=== PATIENT | male | born 1965 | race African-American/Black ===

== ENCOUNTER 2023-02-06 21:53 | Emergency (ER) | payer MEDICAID ==
[~2023-02-06] VITALS: Ht 172.7 cm; Wt 69.0 kg
[2023-02-06 23:13] LABS: CHLORIDE 108 mEq/L (98-107)
[2023-02-06 23:24] LABS: ETHANOL BLOOD < 10 mg/dL
[2023-02-06 23:27] LABS: BASOPHILS % 0.5 % (0.0-2.0); HEMATOCRIT. 41.3 % (42.0-52.0); HEMOGLOBIN. 13.7 g/dL (14.0-18.0); LYMPHOCYTES % 12.6 % (20.0-50.0); MEAN CORPUSCULAR HEMOGLOBIN 28.7 pg (28.0-32.0); MEAN CORPUSCULAR VOLUME 86.8 fL (80.0-94.0); MONOCYTES % 4.1 % (2.0-8.0); NEUTROPHILS % 79.8 % (40.0-76.0); PLATELET 244 x1000/uL (130-400); RED BLOOD CELL COUNT 4.76 mill/uL (4.7-6.1); RED CELL DISTRIBUTION WIDTH 14.3 % (11.6-14.6)
[2023-02-07] MEDS ORDERED: ALBUTEROL (0.083%) 2.5MG/3ML NEB HHN STA (02:29)
[2023-02-07] MEDS ORDERED: IPRATROPIUM BROMIDE (0.02%) 0.5MG/2.5ML NEB HHN STA (02:29)
[2023-02-07] MEDS ORDERED: METHYLPREDNISOLONE SOD SUCC 125 MG/2 ML VIAL IV STA (02:29)
[2023-02-07 02:51] LABS: *AMPHETAMINES SCREEN URINE NEGATIVE (NEGATIVE); *BARBITURATES SCREEN URINE NEGATIVE (NEGATIVE); *BENZODIAZEPINES SCREEN URINE NEGATIVE (NEGATIVE); *COCAINE SCREEN URINE PRESUMTIVE POSITIVE (NEGATIVE); CANNABINOID URINE SCREEN PRESUMTIVE POSITIVE (NEGATIVE); METHADONE URINE SCREEN NEGATIVE (NEGATIVE); OPIATES URINE SCREEN NEGATIVE (NEGATIVE); PHENCYCLIDINE URINE SCREEN NEGATIVE (NEGATIVE)
[2023-02-07] MEDS ORDERED: PRED10TA MT (04:41)
[2023-02-07] MEDS ORDERED: ALBU6.7H3 INH (04:41)
[2023-02-07 05:05] VITALS: BP 122/76
== END 2023-02-07 05:07 | disposition home or self-care (01) ==
LOC: ER 21:53
DX: J45.909 Unspecified asthma, uncomplicated (principal); I10 Essential (primary) hypertension
CPT/HCPCS: 36415; 71045; 80053; 80305; 80320; 83690; 83880; 84484; 85025; 93005; 94640; 96374; 99285; J2930; Z7610; G0480

== ENCOUNTER 2023-03-19 17:55 | Emergency (ER) | payer MEDICAID ==
[~2023-03-19] VITALS: Ht 175.3 cm; Wt 58.9 kg
[~2023-03-19 17:55] MED LIST: ALBU6.7H3 INH; PRED10TA MT
[2023-03-19] MEDS ORDERED: IPRATROPIUM/ALBUTEROL 0.5-3(2.5)MG/3ML NEB HHN ONE (18:15)
[2023-03-19] MEDS ORDERED: PREDNISONE 20MG TABLET PO ONE (18:15)
[2023-03-19] MEDS ORDERED: ALBUTEROL (0.083%) 2.5MG/3ML NEB HHN STA (19:39)
[2023-03-19] MEDS ORDERED: IPRATROPIUM BROMIDE (0.02%) 0.5MG/2.5ML NEB HHN STA (19:39)
[2023-03-19] MEDS ORDERED: P50 MT (21:25)
[2023-03-19 21:38] VITALS: BP 136/92
== END 2023-03-19 21:57 | disposition home or self-care (01) ==
LOC: ER 17:55
DX: J45.901 Unspecified asthma with (acute) exacerbation (principal); I10 Essential (primary) hypertension
CPT/HCPCS: 94640; 99285; J7512; Z7610; 99283

== ENCOUNTER 2023-04-07 12:17 | Emergency (ER) | payer MEDICAID ==
[~2023-04-07] VITALS: Ht 175.3 cm; Wt 76.0 kg
[~2023-04-07 12:17] MED LIST changes: +P50 MT
[2023-04-07 13:06] LABS: BASOPHILS % 0.8 % (0.0-2.0); EOSINOPHILS % 7.1 % (0.0-5.0); HEMATOCRIT. 43.5 % (42.0-52.0); HEMOGLOBIN. 14.4 g/dL (14.0-18.0); LYMPHOCYTES % 18.7 % (20.0-50.0); MEAN CORPUSCULAR HEMOGLOBIN 28.9 pg (28.0-32.0); MEAN CORPUSCULAR VOLUME 87.5 fL (80.0-94.0); MEAN PLATELET VOLUME 8.7 fl (7.4-10.4); MONOCYTES % 5.9 % (2.0-8.0); NEUTROPHILS % 67.5 % (40.0-76.0); PLATELET 272 x1000/uL (130-400); RED BLOOD CELL COUNT 4.97 mill/uL (4.7-6.1); RED CELL DISTRIBUTION WIDTH 14.4 % (11.6-14.6)
[2023-04-07 13:15] LABS: CHLORIDE 108 mEq/L (98-107)
[2023-04-07] MEDS ORDERED: ALBUTEROL (0.083%) 2.5MG/3ML NEB HHN STA (15:57)
[2023-04-07] MEDS ORDERED: PREDNISONE 20MG TABLET PO STA (15:57)
[2023-04-07 16:20] VITALS: PULSE 66; RESP 11; O2SAT 96
[2023-04-07] MEDS ORDERED: P50 MT (18:43)
[2023-04-07] MEDS ORDERED: ALBU6.7H3 INH (18:43)
[2023-04-07 18:44] VITALS: PULSE 58; RESP 15; O2SAT 94
[2023-04-07] MEDS ORDERED: ALBUTEROL (0.083%) 2.5MG/3ML NEB HHN ONE (18:45)
[2023-04-07 20:30] VITALS: BP 130/70; PULSE 55; RESP 16; TEMP 98.7
== END 2023-04-07 20:32 | disposition home or self-care (01) ==
LOC: ER 14:12
DX: J44.1 Chronic obstructive pulmonary disease with (acute) exacerbation (principal); I10 Essential (primary) hypertension
CPT/HCPCS: 36415; 71045; 80053; 83880; 84484; 85025; 93005; 94640; 99285; J7512; Z7610

== ENCOUNTER 2023-04-23 08:32 | Emergency (ER) | payer MEDICAID, MEDICARE ==
[~2023-04-23] VITALS: Ht 177.8 cm; Wt 68.0 kg
[2023-04-23] MEDS ORDERED: ALBUTEROL (0.083%) 2.5MG/3ML NEB HHN STA (08:34)
[2023-04-23] MEDS ORDERED: MAGNESIUM 2 G PREMIX 50 ML IV STA (08:34)
[2023-04-23] MEDS ORDERED: IPRATROPIUM BROMIDE (0.02%) 0.5MG/2.5ML NEB HHN STA (08:34)
[2023-04-23] MEDS ORDERED: METHYLPREDNISOLONE SOD SUCC 125MG/2ML (ACT-O-VIAL) IV STA (08:34)
[2023-04-23 08:55] LABS: BASOPHILS % 0.8 % (0.0-2.0); EOSINOPHILS % 4.4 % (0.0-5.0); HEMATOCRIT. 44.5 % (42.0-52.0); HEMOGLOBIN. 14.7 g/dL (14.0-18.0); LYMPHOCYTES % 21.7 % (20.0-50.0); MEAN CORPUSCULAR HEMOGLOBIN 29.1 pg (28.0-32.0); MEAN CORPUSCULAR VOLUME 88.2 fL (80.0-94.0); MEAN PLATELET VOLUME 9.1 fl (7.4-10.4); MONOCYTES % 8.3 % (2.0-8.0); NEUTROPHILS % 64.8 % (40.0-76.0); PLATELET 285 x1000/uL (130-400); RED BLOOD CELL COUNT 5.05 mill/uL (4.7-6.1)
[2023-04-23 09:03] LABS: CHLORIDE 108 mEq/L (98-107)
[2023-04-23 09:06] VITALS: RESP 24
[2023-04-23] MEDS ORDERED: IPRATROPIUM/ALBUTEROL 0.5-3(2.5)MG/3ML NEB NEB PRN (12:15)
[2023-04-23] MEDS ORDERED: KETOROLAC 15MG/ML VIAL IV PRN (12:15)
[2023-04-23] MEDS ORDERED: CLONIDINE 0.1MG TABLET PO PRN (12:15)
[2023-04-23] MEDS ORDERED: ACETAMINOPHEN 325MG TABLET PO PRN ×2 (12:15)
[2023-04-23] MEDS ORDERED: NITROGLYCERIN 0.4MG TABLET SL SL PRN (12:15)
[2023-04-23] MEDS ORDERED: DOCUSATE SODIUM 100MG CAPSULE PO PRN (12:15)
[2023-04-23] MEDS ORDERED: GUAIFENESIN 200MG/10ML SUGAR FREE UDC PO PRN (12:15)
[2023-04-23] MEDS ORDERED: ONDANSETRON HCL 4MG/2ML INJ IV PRN (12:15)
[2023-04-23] MEDS ORDERED: MAGNESIUM/ALUMINUM HYDROXIDE/SIMETHICONE 30ML UDC PO PRN (12:15)
[2023-04-23] MEDS ORDERED: IPRATROPIUM/ALBUTEROL 0.5-3(2.5)MG/3ML NEB HHN SCH (12:15)
[2023-04-23 12:40] LABS: T4 FREE 0.94 ng/dL (0.76-1.46)
[2023-04-23 12:56] VITALS: PULSE 68; RESP 18; O2SAT 97
[2023-04-23] MEDS ORDERED: LEVOFLOXACIN 500MG PREMIX 100 ML IV SCH (13:00)
[2023-04-23] MEDS ORDERED: ENOXAPARIN 40MG/0.4ML SYR SUBCUT SCH (13:00)
[2023-04-23] MEDS ORDERED: METHYLPREDNISOLONE SOD SUCC 125MG/2ML (ACT-O-VIAL) IV SCH (14:00)
[2023-04-23] MEDS ORDERED: METHYLPREDNISOLONE SOD SUCC 40MG VIAL IV SCH ×2 (14:00→22:00)
[2023-04-23 14:25] LABS: BG BASE EXCESS -2.6 mmol/L (-2.0-2.0); BG CARBOXYHEMOGLOBIN 1.2 % (0.5-1.5); BG DEOXYHEMOGLOBIN 6.6 % (0.0-5.0); BG FRACTION INSPIRED OXYGEN 21; BG HCO3 ACT 21.1 mmol/L (22.0-26.0); BG OXYGEN SATURATION 93.3 % (92.0-98.5); BG OXYHEMOGLOBIN 92.2 % (94.0-97.0); BG PCO2 33.6 mmHg (35.0-45.0); BG PH 7.415 (7.350-7.450); BG PO2 62.9 mmHg (75.0-100.0); BG SAMPLE SITE RIGHT RADIAL; BG TOTAL HEMOGLOBIN 15.2 g/dL (12.0-18.0); BG VENT MODE ROOM AIR
[2023-04-23] MEDS ORDERED: METHYLPREDNISOLONE SOD SUCC 40MG/ML (ACT-O-VIAL) IV NR (15:00)
[2023-04-23 15:10] VITALS: BP 115/87; PULSE 88; RESP 18; TEMP 98.1
[2023-04-23] MEDS ORDERED: ZOLPIDEM TARTRATE 5MG TABLET PO PRN (21:00)
[2023-04-23] MEDS ORDERED: FAMOTIDINE 20MG TABLET PO SCH (21:00)
[2023-04-23] MEDS ORDERED: GUAIFENESIN 600MG ER TABLET PO SCH (21:00)
[2023-04-24] MEDS ORDERED: ASPIRIN 325MG EC TABLET PO SCH (09:00)
[2023-04-28] MEDS ORDERED: BICT1TAB3 (11:25)
[2023-04-29] MEDS ORDERED: P20 MT (15:03)
[2023-04-29] MEDS ORDERED: ALBU6.7H3 INH (15:03)
[2023-04-29] MEDS ORDERED: BUDE6HFA INH (15:03)
[2023-04-29] MEDS ORDERED: ATOR20TA MT (15:05)
== END 2023-04-23 15:14 | disposition left against medical advice (07) ==
LOC: ER 08:32 → EDBEDREQ 12:00 → ER 15:14 → CANBEDREQ 21:25
DX: J45.901 Unspecified asthma with (acute) exacerbation (principal); I10 Essential (primary) hypertension
CPT/HCPCS: 80061; 80053; 82607; 82746; 83036; 83880; 84439; 83540; 83550; 84443; 85025; 36415; 84145; 71045; 93970; 94640; 82805; 82375; 94660; 93005; 96367; 96365; 96372; 96375; 96376; 99291; 36600; J1956; J1650; J3475; J2920; J2930; Z7610 ×8

== ENCOUNTER 2023-06-06 04:50 | Inpatient (IN) | payer MEDICAID ==
[2023-06-06] VITALS (10 sets, daily range): BP systolic 103–143; BP diastolic 56–89; PULSE 68–105; RESP 15–27; TEMP 98.4–98.7; O2SAT 96–97
[~2023-06-06] VITALS: Ht 177.8 cm; Wt 59.4 kg
[~2023-06-06 04:50] MED LIST changes: +ATOR20TA MT; +BICT1TAB PO; +BICT1TAB3; +BUDE6HFA INH; +LEVO-65 MT; +P20 MT; -P50 MT; -PRED10TA MT
[2023-06-06] MEDS ORDERED: ALBUTEROL (0.083%) 2.5MG/3ML NEB HHN STA (04:59)
[2023-06-06] MEDS ORDERED: IPRATROPIUM BROMIDE (0.02%) 0.5MG/2.5ML NEB HHN STA (04:59)
[2023-06-06] MEDS ORDERED: METHYLPREDNISOLONE SOD SUCC 40MG VIAL IV ONE (05:30)
[2023-06-06 05:43] LABS: BASOPHILS % 0.6 % (0.0-2.0); EOSINOPHILS % 5.7 % (0.0-5.0); HEMATOCRIT. 45.4 % (42.0-52.0); HEMOGLOBIN. 14.4 g/dL (14.0-18.0); LYMPHOCYTES % 21.4 % (20.0-50.0); MEAN CORPUSCULAR HEMOGLOBIN 28.8 pg (28.0-32.0); MEAN CORPUSCULAR HGB CONC 31.7 g/dL (31.0-37.0); MEAN CORPUSCULAR VOLUME 90.6 fL (80.0-94.0); MEAN PLATELET VOLUME 9.3 fl (7.4-10.4); MONOCYTES % 7.9 % (2.0-8.0); NEUTROPHILS % 64.4 % (40.0-76.0); PLATELET 312 x1000/uL (130-400); RED BLOOD CELL COUNT 5.01 mill/uL (4.7-6.1); RED CELL DISTRIBUTION WIDTH 13.8 % (11.6-14.6); WHITE BLOOD COUNT 6.7 x1000/uL (4.5-11.0)
[2023-06-06 05:56] LABS: CHLORIDE 108 mEq/L (98-107); INDEX HEMOLYSI 3 (1-3); INDEX ICTERIC 1 (1-4); INDEX LIPEMIC 1 (1-3); POTASSIUM 3.9 mEq/L (3.5-5.1); SODIUM 142 mEq/L (136-145)
[2023-06-06 06:08] LABS: ALANINE AMINOTRANSFERASE 41 IU/L (13-61); ALBUMIN 3.6 g/dL (3.4-5.0); ASPARTATE AMINOTRANSFERASE 25 IU/L (15-37); BILIRUBIN TOTAL 0.4 mg/dL (0.1-1.0); CALCIUM 8.6 mg/dL (8.5-10.1); CARBON DIOXIDE 31 mEq/L (21-32); CREATININE 1.1 mg/dL (0.6-1.3); ETHANOL BLOOD < 10 mg/dL (-10); GLUCOSE 129 mg/dL (70-105); NT PRO B-TYPE NATRIURETIC PEP 9 pg/mL (5-125); TROPONIN I HIGH SENSITIVITY 6 ng/L (<78); UREA NITROGEN BLOOD 27 mg/dL (7-21)
[2023-06-06] MEDS ORDERED: METHYLPREDNISOLONE SOD SUCC 125MG VIAL IV SCH ×2 (07:00→14:00)
[2023-06-06] MEDS ORDERED: ONDANSETRON HCL 4MG/2ML INJ IV PRN (10:15)
[2023-06-06] MEDS ORDERED: GUAIFENESIN 200MG/10ML SUGAR FREE UDC PO PRN (10:15)
[2023-06-06] MEDS ORDERED: ACETAMINOPHEN 325MG TABLET PO PRN ×2 (10:15)
[2023-06-06] MEDS ORDERED: MAGNESIUM/ALUMINUM HYDROXIDE/SIMETHICONE 30ML UDC PO PRN (10:15)
[2023-06-06] MEDS ORDERED: DIPHENHYDRAMINE 50MG/ML VIAL IV PRN (10:15)
[2023-06-06] MEDS ORDERED: ZOLPIDEM TARTRATE 5MG TABLET PO PRN (10:15)
[2023-06-06] MEDS ORDERED: IPRATROPIUM/ALBUTEROL 0.5-3(2.5)MG/3ML NEB NEB PRN (10:15)
[2023-06-06] MEDS ORDERED: CLONIDINE 0.1MG TABLET PO PRN (10:15)
[2023-06-06 12:48] LABS: BG BASE EXCESS 0.5 mmol/L (-2.0-2.0); BG DEOXYHEMOGLOBIN 8.9 % (0.0-5.0); BG FRACTION INSPIRED OXYGEN 28; BG HCO3 ACT 25.4 mmol/L (22.0-26.0); BG METHEMOGLOBIN 0.2 % (0.0-1.5); BG OXYHEMOGLOBIN 89.9 % (94.0-97.0); BG PCO2 41.8 mmHg (35.0-45.0); BG PH 7.401 (7.350-7.450); BG PO2 55.8 mmHg (75.0-100.0); BG SAMPLE SITE LEFT BRACHIAL; BG TOTAL HEMOGLOBIN 14.5 g/dL (12.0-18.0); BG VENT MODE NASAL CANNULA
[2023-06-06] MEDS: IPRATROPIUM/ALBUTEROL 0.5-3(2.5)MG/3ML NEB HHN SCH ×2 (13:41→22:12)
[2023-06-06] MEDS: SODIUM CHLORIDE 0.9% INJ 3ML FLUSH IVF SCH ×2 (14:00→20:37)
[2023-06-06] MEDS ORDERED: PNEUMOCOCCAL 23-VAL P-SAC VAC 0.5 ML IM ONE (14:30)
[2023-06-06] MEDS: MONTELUKAST SODIUM 10MG TABLET PO SCH (16:38)
[2023-06-06] MEDS: ENOXAPARIN 40MG/0.4ML SYR SUBCUT SCH (16:39)
[2023-06-06] MEDS ORDERED: NON FORMULARY PATIENT HOME MED XX SCH (17:30)
[2023-06-06] MEDS ORDERED: ASPI-1406 PO (19:50)
[2023-06-06] MEDS ORDERED: FOLI-43 PO (19:50)
[2023-06-06] MEDS ORDERED: ATOR20TA65 PO (19:50)
[2023-06-06] MEDS ORDERED: CALC-3 PO (19:50)
[2023-06-06] MEDS ORDERED: BUPR-113 PO (19:50)
[2023-06-06] MEDS: ATORVASTATIN CALCIUM 20MG TABLET PO SCH (20:36)
[2023-06-06] MEDS: METHYLPREDNISOLONE SOD SUCC 40MG VIAL IV SCH (20:36)
[2023-06-07] VITALS (8 sets, daily range): BP systolic 98–117; BP diastolic 58–72; PULSE 80–91; RESP 13–21; TEMP 97.5–98.3; O2SAT 94–99
[2023-06-07] MEDS: SODIUM CHLORIDE 0.9% INJ 3ML FLUSH IVF SCH ×3 (05:22→22:00)
[2023-06-07] MEDS: METHYLPREDNISOLONE SOD SUCC 40MG VIAL IV SCH ×2 (08:21→20:44)
[2023-06-07] MEDS: ASPIRIN 81MG EC TABLET PO SCH (08:22)
[2023-06-07] MEDS: FOLIC ACID 1MG TABLET PO SCH (08:22)
[2023-06-07] MEDS: BUPROPION HCL 100MG SR TABLET PO SCH (08:22)
[2023-06-07] MEDS: LORATADINE 10MG TABLET PO SCH (08:22)
[2023-06-07] MEDS: IPRATROPIUM/ALBUTEROL 0.5-3(2.5)MG/3ML NEB HHN SCH ×2 (09:24→15:08)
[2023-06-07] MEDS: ENOXAPARIN 40MG/0.4ML SYR SUBCUT SCH (13:11)
[2023-06-07] MEDS: MONTELUKAST SODIUM 10MG TABLET PO SCH (17:30)
[2023-06-07] MEDS: ATORVASTATIN CALCIUM 20MG TABLET PO SCH (20:44)
[2023-06-08] VITALS (8 sets, daily range): BP systolic 112–127; BP diastolic 66–81; PULSE 72–101; RESP 15–18; TEMP 97.3–97.5; O2SAT 97–99
[2023-06-08] MEDS: IPRATROPIUM/ALBUTEROL 0.5-3(2.5)MG/3ML NEB HHN SCH ×3 (01:27→15:14)
[2023-06-08] MEDS: SODIUM CHLORIDE 0.9% INJ 3ML FLUSH IVF SCH ×2 (06:52→13:32)
[2023-06-08 08:50] LABS: BG BASE EXCESS 2.1 mmol/L (-2.0-2.0); BG CARBOXYHEMOGLOBIN 0.4 % (0.5-1.5); BG DEOXYHEMOGLOBIN 4.4 % (0.0-5.0); BG FRACTION INSPIRED OXYGEN 28; BG METHEMOGLOBIN 0.3 % (0.0-1.5); BG OXYGEN SATURATION 95.6 % (92.0-98.5); BG OXYHEMOGLOBIN 94.9 % (94.0-97.0); BG PCO2 42.7 mmHg (35.0-45.0); BG PH 7.418 (7.350-7.450); BG PO2 75.6 mmHg (75.0-100.0); BG SAMPLE SITE RIGHT RADIAL; BG TOTAL HEMOGLOBIN 15.2 g/dL (12.0-18.0); BG VENT MODE NASAL CANNULA
[2023-06-08] MEDS: BUPROPION HCL 100MG SR TABLET PO SCH (09:35)
[2023-06-08] MEDS: METHYLPREDNISOLONE SOD SUCC 40MG VIAL IV SCH (09:35)
[2023-06-08] MEDS: FOLIC ACID 1MG TABLET PO SCH (09:35)
[2023-06-08] MEDS: LORATADINE 10MG TABLET PO SCH (09:35)
[2023-06-08] MEDS: ASPIRIN 81MG EC TABLET PO SCH (09:35)
[2023-06-08] MEDS: ENOXAPARIN 40MG/0.4ML SYR SUBCUT SCH (12:16)
[2023-06-08] MEDS: MONTELUKAST SODIUM 10MG TABLET PO SCH (16:29)
== END 2023-06-08 23:47 | disposition home or self-care (01) | DRG 140 ==
LOC: ER 04:50 → 5EST 06:29 → EDBEDREQ 06:45 → EDBEDREQTM 06:45
PROVIDERS: ADMIT Internal Medicine; ATTEND Internal Medicine
PROC: 5A09357 Assistance with Respiratory Ventilation, Less than 24 Consecutive Hours, Continuous Positive Airway Pressure (ICD-10-PCS; principal; 2023-06-06)
DX: J44.1 Chronic obstructive pulmonary disease with (acute) exacerbation (principal); J96.01 Acute respiratory failure with hypoxia; D72.10 Eosinophilia, unspecified; F32.A Depression, unspecified; J45.909 Unspecified asthma, uncomplicated; E78.00 Pure hypercholesterolemia, unspecified; F17.210 Nicotine dependence, cigarettes, uncomplicated
CPT/HCPCS: 36415; 36600; 71045; 80053; 80320; 82375; 82805; 83880; 84484; 85025; 90732; 93005; 94640; 94660; 99291; J1650; J2920; J2930; G0480

== ENCOUNTER 2023-09-21 04:31 | Emergency (ER) | payer MEDICAID ==
[~2023-09-21] VITALS: Ht 182.9 cm; Wt 69.0 kg
[~2023-09-21 04:31] MED LIST changes: +ASPI-1406 PO; -ATOR20TA MT; +ATOR20TA65 PO; -BICT1TAB3; +BUPR-113 PO; +CALC-3 PO; +FOLI-43 PO; -LEVO-65 MT; -P20 MT
[2023-09-21] MEDS ORDERED: IPRATROPIUM BROMIDE (0.02%) 0.5MG/2.5ML NEB HHN STA ×2 (04:34→04:50)
[2023-09-21] MEDS ORDERED: METHYLPREDNISOLONE SOD SUCC 125MG/2ML (ACT-O-VIAL) IV STA (04:34)
[2023-09-21 04:45] VITALS: PULSE 100; RESP 24; O2SAT 97
[2023-09-21] MEDS ORDERED: SODIUM CHLORIDE 0.9% 1,000 ML IV ONE (04:45)
[2023-09-21] MEDS ORDERED: MAGNESIUM 2 G PREMIX 50 ML IV ONE (04:45)
[2023-09-21] MEDS ORDERED: ALBUTEROL (0.083%) 2.5MG/3ML NEB HHN SCH (05:00)
[2023-09-21 05:03] LABS: BASOPHILS % 0.8 % (0.0-2.0); DIFFERENTIAL COMMENT 0; EOSINOPHILS % 3.6 % (0.0-5.0); HEMATOCRIT. 45.4 % (42.0-52.0); HEMOGLOBIN. 14.9 g/dL (14.0-18.0); LYMPHOCYTES % 21.3 % (20.0-50.0); MEAN CORPUSCULAR HEMOGLOBIN 29.3 pg (28.0-32.0); MEAN CORPUSCULAR HGB CONC 32.9 g/dL (31.0-37.0); MEAN CORPUSCULAR VOLUME 88.9 fL (80.0-94.0); MEAN PLATELET VOLUME 9.5 fl (7.4-10.4); MONOCYTES % 8.4 % (2.0-8.0); NEUTROPHILS % 65.9 % (40.0-76.0); PLATELET 309 x1000/uL (130-400); RED CELL DISTRIBUTION WIDTH 13.6 % (11.6-14.6); WHITE BLOOD COUNT 7.7 x1000/uL (4.5-11.0)
[2023-09-21] MEDS: ALBUTEROL (0.083%) 2.5MG/3ML NEB HHN SCH ×2 (05:24→05:25)
[2023-09-21 05:25] LABS: ALANINE AMINOTRANSFERASE 32 IU/L (10-49); ALBUMIN 4.5 g/dL (3.2-4.8); ASPARTATE AMINOTRANSFERASE 24 IU/L (<34); BILIRUBIN TOTAL 1.4 mg/dL (0.1-1.0); CALCIUM 9.8 mg/dL (8.7-10.4); CARBON DIOXIDE 30 mEq/L (21-32); CHLORIDE 103 mEq/L (98-107); CREATININE 0.8 mg/dL (0.6-1.3); GLUCOSE 115 mg/dL (70-105); PROTEIN TOTAL 7.2 g/dL (6.0-8.3); SODIUM 140 mEq/L (136-145); TROPONIN I HIGH SENSITIVITY 7 ng/L (3.0-53); UREA NITROGEN BLOOD 15 mg/dL (9-23)
[2023-09-21 09:30] VITALS: BP 118/73; PULSE 82; RESP 22; TEMP 98.2
[2023-09-21] MEDS ORDERED: IPRATROPIUM/ALBUTEROL 0.5-3(2.5)MG/3ML NEB HHN SCH (10:00)
[2023-09-21] MEDS ORDERED: ONDANSETRON HCL 4MG/2ML INJ IV PRN (10:00)
[2023-09-21] MEDS ORDERED: METHYLPREDNISOLONE SOD SUCC 125MG/2ML (ACT-O-VIAL) IV SCH (10:00)
[2023-09-21] MEDS ORDERED: ENOXAPARIN 40MG/0.4ML SYR SUBCUT SCH (10:00)
[2023-09-21] MEDS ORDERED: MAGNESIUM/ALUMINUM HYDROXIDE/SIMETHICONE 30ML UDC PO PRN (10:00)
[2023-09-21] MEDS ORDERED: ACETAMINOPHEN 650MG SUPP PR PRN (10:00)
[2023-09-21] MEDS ORDERED: CLONIDINE 0.1MG TABLET PO PRN (10:00)
[2023-09-21] MEDS ORDERED: DOCUSATE SODIUM 100MG CAPSULE PO PRN (10:00)
[2023-09-21] MEDS ORDERED: GUAIFENESIN 200MG/10ML SUGAR FREE UDC PO PRN (10:00)
[2023-09-21] MEDS ORDERED: MEDICATION NOT ON FORMULARY EA (Bictegrav/Emtricit/Tenofov Ala (Biktarvy 50-200-25 mg Ta PO SCH (10:45)
[2023-09-21] MEDS ORDERED: FAMOTIDINE 20MG TABLET PO SCH (21:00)
[2023-09-21] MEDS ORDERED: ATORVASTATIN CALCIUM 20MG TABLET PO SCH (21:00)
== END 2023-09-21 12:02 | disposition left against medical advice (07) ==
LOC: ER 04:39
DX: J44.1 Chronic obstructive pulmonary disease with (acute) exacerbation (principal); I10 Essential (primary) hypertension; Z86.73 Personal history of transient ischemic attack (TIA), and cerebral infarction without residual deficits; F17.200 Nicotine dependence, unspecified, uncomplicated; F14.10 Cocaine abuse, uncomplicated; R73.9 Hyperglycemia, unspecified; Z20.822 Contact with and (suspected) exposure to COVID-19
CPT/HCPCS: 80053; 83880; 83605; 85025; 84484; 36415; 71045; 93005; 94644; 96365; 96366; 96375; 99291; 87426; J1650; J3475; J2930; Z7610 ×6; J7030; C9803

== ENCOUNTER 2023-10-04 23:24 | Emergency (ER) | payer MEDICAID ==
[~2023-10-04] VITALS: Ht 175.3 cm; Wt 70.0 kg
[2023-10-04 23:40] VITALS: BP 133/98; TEMP 98.5
[2023-10-05 00:18] LABS: BASOPHILS % 0.8 % (0.0-2.0); EOSINOPHILS % 7.6 % (0.0-5.0); HEMOGLOBIN. 15.4 g/dL (14.0-18.0); MEAN CORPUSCULAR HEMOGLOBIN 29.2 pg (28.0-32.0); MEAN CORPUSCULAR HGB CONC 32.7 g/dL (31.0-37.0); MEAN CORPUSCULAR VOLUME 89.3 fL (80.0-94.0); MEAN PLATELET VOLUME 9.3 fl (7.4-10.4); MONOCYTES % 7.8 % (2.0-8.0); NEUTROPHILS % 54.8 % (40.0-76.0); PLATELET 341 x1000/uL (130-400); RED BLOOD CELL COUNT 5.27 mill/uL (4.7-6.1); RED CELL DISTRIBUTION WIDTH 13.5 % (11.6-14.6); WHITE BLOOD COUNT 5.1 x1000/uL (4.5-11.0)
[2023-10-05 00:21] LABS: INR 1.1; PROTHROMBIN TIME 11.4 sec (9.6-11.0)
[2023-10-05 00:31] LABS: ALANINE AMINOTRANSFERASE 29 IU/L (10-49); ALBUMIN 4.5 g/dL (3.2-4.8); ASPARTATE AMINOTRANSFERASE 21 IU/L (<34); BILIRUBIN TOTAL 0.8 mg/dL (0.1-1.0); CALCIUM 9.6 mg/dL (8.7-10.4); CARBON DIOXIDE 34 mEq/L (21-32); CHLORIDE 103 mEq/L (98-107); CREATININE 1.1 mg/dL (0.6-1.3); GLUCOSE 93 mg/dL (70-105); SODIUM 141 mEq/L (136-145); UREA NITROGEN BLOOD 9 mg/dL (9-23)
[2023-10-05 00:32] LABS: TROPONIN I HIGH SENSITIVITY < 4 ng/L (3.0-53)
[2023-10-05] MEDS ORDERED: IPRATROPIUM BROMIDE (0.02%) 0.5MG/2.5ML NEB HHN STA (01:06)
[2023-10-05] MEDS ORDERED: ALBUTEROL (0.083%) 2.5MG/3ML NEB HHN STA (01:06)
[2023-10-05] MEDS ORDERED: PREDNISONE 20MG TABLET PO ONE (01:15)
[2023-10-05] MEDS ORDERED: PRED10TA MT (01:20)
[2023-10-05 01:30] VITALS: PULSE 71; RESP 20; O2SAT 98
== END 2023-10-05 02:04 | disposition home or self-care (01) ==
LOC: ER 23:24
DX: R06.02 Shortness of breath (principal); J45.909 Unspecified asthma, uncomplicated; Z86.73 Personal history of transient ischemic attack (TIA), and cerebral infarction without residual deficits
CPT/HCPCS: 80053; 83880; 85025; 85610; 84484; 36415; 71045; 94664; 94640; 93005; 99285; Z7610 ×3; J7512

== ENCOUNTER 2023-10-30 03:02 | Emergency (ER) | payer MEDICAID ==
[~2023-10-30] VITALS: Ht 180.3 cm; Wt 82.0 kg
[~2023-10-30 03:02] MED LIST changes: +ALBU6.7H15 INH; +P50 MT; +PRED10TA MT
[2023-10-30] MEDS ORDERED: ALBUTEROL (0.083%) 2.5MG/3ML NEB HHN STA (03:03)
[2023-10-30] MEDS ORDERED: IPRATROPIUM BROMIDE (0.02%) 0.5MG/2.5ML NEB HHN STA (03:03)
[2023-10-30] MEDS ORDERED: METHYLPREDNISOLONE SOD SUCC 125MG/2ML (ACT-O-VIAL) IV STA (03:03)
[2023-10-30] MEDS ORDERED: MAGNESIUM 2 G PREMIX 50 ML IV ONE (03:15)
[2023-10-30] MEDS ORDERED: SODIUM CHLORIDE 0.9% 1,000 ML IV ONE (03:15)
[2023-10-30 03:39] LABS: BASOPHILS % 0.8 % (0.0-2.0); EOSINOPHILS % 6.5 % (0.0-5.0); HEMATOCRIT. 45.4 % (42.0-52.0); LYMPHOCYTES % 21.6 % (20.0-50.0); MEAN CORPUSCULAR HEMOGLOBIN 28.9 pg (28.0-32.0); MEAN CORPUSCULAR VOLUME 87.8 fL (80.0-94.0); MEAN PLATELET VOLUME 9.3 fl (7.4-10.4); MONOCYTES % 7.4 % (2.0-8.0); NEUTROPHILS % 63.7 % (40.0-76.0); PLATELET 314 x1000/uL (130-400); RED BLOOD CELL COUNT 5.18 mill/uL (4.7-6.1); RED CELL DISTRIBUTION WIDTH 13.8 % (11.6-14.6); WHITE BLOOD COUNT 6.1 x1000/uL (4.5-11.0)
[2023-10-30 03:48] LABS: PARTIAL THROMBOPLASTIN TIME 28.5 sec (23.4-31.0); PROTHROMBIN TIME 10.9 sec (9.6-11.0)
[2023-10-30 03:52] LABS: ALANINE AMINOTRANSFERASE 44 IU/L (10-49); ALBUMIN 4.4 g/dL (3.2-4.8); ASPARTATE AMINOTRANSFERASE 28 IU/L (<34); BILIRUBIN TOTAL 0.6 mg/dL (0.1-1.0); CALCIUM 9.5 mg/dL (8.7-10.4); CARBON DIOXIDE 34 mEq/L (21-32); CHLORIDE 101 mEq/L (98-107); CREATININE 0.9 mg/dL (0.6-1.3); GLUCOSE 106 mg/dL (70-105); PROTEIN TOTAL 6.8 g/dL (6.0-8.3); SODIUM 139 mEq/L (136-145); TROPONIN I HIGH SENSITIVITY 5 ng/L (3.0-53); UREA NITROGEN BLOOD 12 mg/dL (9-23)
[2023-10-30 04:13] LABS: ETHANOL BLOOD < 10 mg/dL (<10)
[2023-10-30] MEDS ORDERED: MAGNESIUM 2 G PREMIX 50 ML IV NR (05:15)
[2023-10-30] MEDS ORDERED: METHYLPREDNISOLONE SOD SUCC 125MG/2ML (ACT-O-VIAL) IV NR (05:15)
[2023-10-30 06:09] VITALS: PULSE 70; RESP 18; O2SAT 91
[2023-10-30] MEDS ORDERED: ALBUTEROL (0.083%) 2.5MG/3ML NEB HHN NR (06:15)
[2023-10-30] MEDS ORDERED: IPRATROPIUM BROMIDE (0.02%) 0.5MG/2.5ML NEB HHN NR (06:15)
[2023-10-30] MEDS ORDERED: ALBU6.7H15 INH (06:26)
[2023-10-30] MEDS ORDERED: P20 MT (06:26)
[2023-10-30 06:34] LABS: TROPONIN I HIGH SENSITIVITY 5 ng/L (3.0-53)
[2023-10-30 07:34] VITALS: BP 115/78; PULSE 70; RESP 18; TEMP 98.6
== END 2023-10-30 09:05 | disposition home or self-care (01) ==
LOC: ER 03:02
DX: J44.1 Chronic obstructive pulmonary disease with (acute) exacerbation (principal); F17.290 Nicotine dependence, other tobacco product, uncomplicated; Z98.890 Other specified postprocedural states; Z86.73 Personal history of transient ischemic attack (TIA), and cerebral infarction without residual deficits
CPT/HCPCS: 80053; 80320; 83880; 83605; 85025; 85610; 85730; 87040; 84484; 36415; 84145; 71045; 94640; 93005; 96365; 99285; 99406; J3475; J2930; Z7610 ×3; J7030; G0480

== ENCOUNTER 2023-11-13 01:04 | Emergency (ER) | payer MEDICAID ==
[~2023-11-13] VITALS: Ht 175.3 cm; Wt 58.9 kg
[~2023-11-13 01:04] MED LIST changes: +P20 MT
[2023-11-13] MEDS ORDERED: ALBUTEROL (0.083%) 2.5MG/3ML NEB HHN STA (01:34)
[2023-11-13] MEDS ORDERED: METHYLPREDNISOLONE SOD SUCC 125MG/2ML (ACT-O-VIAL) IV STA (01:34)
[2023-11-13] MEDS ORDERED: IPRATROPIUM BROMIDE (0.02%) 0.5MG/2.5ML NEB HHN STA (01:34)
[2023-11-13 01:47] LABS: BASOPHILS % 0.8 % (0.0-2.0); EOSINOPHILS % 6.7 % (0.0-5.0); HEMOGLOBIN. 15.1 g/dL (14.0-18.0); LYMPHOCYTES % 20.4 % (20.0-50.0); MEAN CORPUSCULAR HEMOGLOBIN 29.3 pg (28.0-32.0); MEAN CORPUSCULAR HGB CONC 32.8 g/dL (31.0-37.0); MEAN CORPUSCULAR VOLUME 89.5 fL (80.0-94.0); MEAN PLATELET VOLUME 9.1 fl (7.4-10.4); MONOCYTES % 6.9 % (2.0-8.0); NEUTROPHILS % 65.2 % (40.0-76.0); PLATELET 276 x1000/uL (130-400); RED BLOOD CELL COUNT 5.15 mill/uL (4.7-6.1); RED CELL DISTRIBUTION WIDTH 13.7 % (11.6-14.6); WHITE BLOOD COUNT 6.1 x1000/uL (4.5-11.0)
[2023-11-13 02:00] LABS: PARTIAL THROMBOPLASTIN TIME 27.2 sec (23.4-31.0); PROTHROMBIN TIME 10.7 sec (9.6-11.0)
[2023-11-13 02:30] VITALS: PULSE 78; RESP 22; O2SAT 99
[2023-11-13 02:39] LABS: ALANINE AMINOTRANSFERASE 60 IU/L (10-49); ALBUMIN 4.9 g/dL (3.2-4.8); ASPARTATE AMINOTRANSFERASE 27 IU/L (<34); CALCIUM 9.7 mg/dL (8.7-10.4); CARBON DIOXIDE 33 mEq/L (21-32); CHLORIDE 104 mEq/L (98-107); GLUCOSE 89 mg/dL (70-105); POTASSIUM 3.8 mEq/L (3.5-5.1); PROTEIN TOTAL 7.2 g/dL (6.0-8.3); SODIUM 140 mEq/L (136-145); TROPONIN I HIGH SENSITIVITY 7 ng/L (3.0-53); UREA NITROGEN BLOOD 16 mg/dL (9-23)
[2023-11-13] MEDS ORDERED: P20 MT (03:48)
[2023-11-13] MEDS ORDERED: GUAI600T26 MT (03:48)
[2023-11-13] MEDS ORDERED: ALBU6.7H15 INH (03:48)
[2023-11-13 04:58] VITALS: BP 121/75; PULSE 78; RESP 16; TEMP 98.1
== END 2023-11-13 05:00 | disposition home or self-care (01) ==
LOC: ER 01:04
DX: J44.1 Chronic obstructive pulmonary disease with (acute) exacerbation (principal); J45.909 Unspecified asthma, uncomplicated; Z79.82 Long term (current) use of aspirin; Z00.00 Encounter for general adult medical examination without abnormal findings; Z72.0 Tobacco use; Z79.899 Other long term (current) drug therapy
CPT/HCPCS: 80053; 83880; 85025; 85610; 85730; 87040; 84484; 36415; 71045; 94640; 93005; 96374; 99285; Z7610 ×3; J2930

== ENCOUNTER 2023-11-29 04:49 | Emergency (ER) | payer MEDICAID ==
[~2023-11-29] VITALS: Ht 180.3 cm; Wt 70.0 kg
[~2023-11-29 04:49] MED LIST changes: -ALBU6.7H3 INH; +AZIT500T MT; +GUAI600T26 MT; -P50 MT; -PRED10TA MT
[2023-11-29 05:20] LABS: BASOPHILS % 0.8 % (0.0-2.0); EOSINOPHILS % 3.5 % (0.0-5.0); HEMATOCRIT. 42.5 % (42.0-52.0); LYMPHOCYTES % 15.8 % (20.0-50.0); MEAN CORPUSCULAR HEMOGLOBIN 29.3 pg (28.0-32.0); MEAN CORPUSCULAR HGB CONC 32.9 g/dL (31.0-37.0); MEAN CORPUSCULAR VOLUME 89.2 fL (80.0-94.0); MONOCYTES % 4.5 % (2.0-8.0); NEUTROPHILS % 75.4 % (40.0-76.0); PLATELET 331 x1000/uL (130-400); RED BLOOD CELL COUNT 4.77 mill/uL (4.7-6.1); RED CELL DISTRIBUTION WIDTH 13.7 % (11.6-14.6); WHITE BLOOD COUNT 10.6 x1000/uL (4.5-11.0)
[2023-11-29] MEDS ORDERED: IPRATROPIUM BROMIDE (0.02%) 0.5MG/2.5ML NEB HHN STA ×2 (05:21→08:30)
[2023-11-29] MEDS ORDERED: ALBUTEROL (0.083%) 2.5MG/3ML NEB HHN STA ×2 (05:21→08:30)
[2023-11-29 05:30] VITALS: BP 90/69; TEMP 97.7
[2023-11-29 05:35] LABS: ALANINE AMINOTRANSFERASE 44 IU/L (10-49); ALBUMIN 4.5 g/dL (3.2-4.8); ASPARTATE AMINOTRANSFERASE 24 IU/L (<34); BILIRUBIN TOTAL 0.4 mg/dL (0.1-1.0); CARBON DIOXIDE 31 mEq/L (21-32); CHLORIDE 105 mEq/L (98-107); GLUCOSE 115 mg/dL (70-105); PROTEIN TOTAL 6.9 g/dL (6.0-8.3); SODIUM 140 mEq/L (136-145); TROPONIN I HIGH SENSITIVITY 8 ng/L (3.0-53); UREA NITROGEN BLOOD 19 mg/dL (9-23)
[2023-11-29] MEDS: METHYLPREDNISOLONE SOD SUCC 125MG/2ML (ACT-O-VIAL) IV STA (05:39)
[2023-11-29 05:52] LABS: INR 0.9; PARTIAL THROMBOPLASTIN TIME 25.9 sec (23.4-31.0); PROTHROMBIN TIME 10.5 sec (9.6-11.0)
[2023-11-29 06:37] LABS: ETHANOL BLOOD < 10 mg/dL (<10)
[2023-11-29] MEDS ORDERED: MAGNESIUM 2 G PREMIX 50 ML IV ONE (08:45)
[2023-11-29 10:43] VITALS: PULSE 81; RESP 18; O2SAT 97
[2023-11-29] MEDS: IPRATROPIUM BROMIDE (0.02%) 0.5MG/2.5ML NEB HHN NR (10:43)
[2023-11-29] MEDS: ALBUTEROL (0.083%) 2.5MG/3ML NEB HHN NR (10:43)
[2023-11-29] MEDS ORDERED: ALBU6.7H15 INH (12:29)
[2023-11-29] MEDS ORDERED: P50 MT (12:30)
== END 2023-11-29 05:24 | disposition home or self-care (01) ==
LOC: ER 04:53
DX: J45.901 Unspecified asthma with (acute) exacerbation (principal); Z79.899 Other long term (current) drug therapy
CPT/HCPCS: 80053; 80320; 83880; 83605; 83690; 85025; 85610; 85730; 87040; 84484; 36415; 71045; 94640; 82803; 93005; 96374; 99285; J2930; Z7610 ×3; G0480

== ENCOUNTER 2024-01-14 08:10 | Emergency (ER) | payer MEDICAID ==
[~2024-01-14] VITALS: Ht 175.3 cm; Wt 77.0 kg
[2024-01-14] MEDS: ALBUTEROL (0.083%) 2.5MG/3ML NEB ONE (08:39)
[2024-01-14] MEDS: METHYLPREDNISOLONE SOD SUCC 125MG/2ML (ACT-O-VIAL) IV STA (08:50)
[2024-01-14 09:00] VITALS: PULSE 114; RESP 28; O2SAT 100
[2024-01-14] MEDS: IPRATROPIUM BROMIDE (0.02%) 0.5MG/2.5ML NEB HHN STA (09:00)
[2024-01-14] MEDS: ALBUTEROL (0.083%) 2.5MG/3ML NEB HHN STA (09:00)
[2024-01-14 09:18] LABS: BASOPHILS % 0.6 % (0.0-2.0); EOSINOPHILS % 4.2 % (0.0-5.0); HEMATOCRIT. 43.3 % (42.0-52.0); LYMPHOCYTES % 22.8 % (20.0-50.0); MEAN CORPUSCULAR HEMOGLOBIN 28.6 pg (28.0-32.0); MEAN CORPUSCULAR HGB CONC 32.2 g/dL (31.0-37.0); MEAN CORPUSCULAR VOLUME 88.7 fL (80.0-94.0); MEAN PLATELET VOLUME 9.8 fl (7.4-10.4); NEUTROPHILS % 63.4 % (40.0-76.0); PLATELET 294 x1000/uL (130-400); RED BLOOD CELL COUNT 4.88 mill/uL (4.7-6.1); RED CELL DISTRIBUTION WIDTH 14.2 % (11.6-14.6); WHITE BLOOD COUNT 7.6 x1000/uL (4.5-11.0)
[2024-01-14 09:20] LABS: INR 0.9; PROTHROMBIN TIME 10.2 sec (9.6-11.0)
[2024-01-14 09:39] LABS: ALANINE AMINOTRANSFERASE 58 IU/L (10-49); ALBUMIN 4.3 g/dL (3.2-4.8); ASPARTATE AMINOTRANSFERASE 45 IU/L (<34); BILIRUBIN TOTAL 0.3 mg/dL (0.1-1.0); CALCIUM 8.6 mg/dL (8.7-10.4); CARBON DIOXIDE 27 mEq/L (21-32); CHLORIDE 108 mEq/L (98-107); CREATININE 0.8 mg/dL (0.6-1.3); GLUCOSE 95 mg/dL (70-105); POTASSIUM 4.9 mEq/L (3.5-5.1); PROTEIN TOTAL 6.8 g/dL (6.0-8.3); SODIUM 141 mEq/L (136-145); TROPONIN I HIGH SENSITIVITY 5 ng/L (3.0-53); UREA NITROGEN BLOOD 20 mg/dL (9-23)
[2024-01-14 12:31] LABS: TROPONIN I HIGH SENSITIVITY 6 ng/L (3.0-53)
[2024-01-14] MEDS ORDERED: ALBU6.7H15 INH (13:17)
[2024-01-14] MEDS ORDERED: P20 MT (13:17)
[2024-01-14 14:11] VITALS: BP 131/75; PULSE 98; RESP 20; TEMP 98.5
== END 2024-01-14 14:19 | disposition home or self-care (01) ==
LOC: ER 08:10
DX: J44.9 Chronic obstructive pulmonary disease, unspecified (principal); I10 Essential (primary) hypertension; F17.200 Nicotine dependence, unspecified, uncomplicated; Z79.899 Other long term (current) drug therapy
CPT/HCPCS: 80053; 85025; 85610; 84484; 36415; 71045; 94640; 96374; 99284; J2930; Z7610 ×3

== ENCOUNTER 2024-01-20 12:11 | Emergency (ER) | payer MEDICAID ==
[~2024-01-20] VITALS: Ht 170.2 cm; Wt 73.0 kg
[2024-01-20 12:14] VITALS: TEMP 98; O2SAT 98
[2024-01-20] MEDS ORDERED: P50 MT (12:40)
[2024-01-20 13:07] VITALS: BP 122/81; PULSE 103; RESP 20
== END 2024-01-20 13:08 | disposition home or self-care (01) ==
LOC: ER 12:11
DX: J44.1 Chronic obstructive pulmonary disease with (acute) exacerbation (principal); I10 Essential (primary) hypertension; Z79.899 Other long term (current) drug therapy; Z79.82 Long term (current) use of aspirin
CPT/HCPCS: 99283; Z7610

== ENCOUNTER 2024-01-26 04:23 | Emergency (ER) | payer MEDICAID ==
[~2024-01-26] VITALS: Ht 180.3 cm; Wt 69.0 kg
[~2024-01-26 04:23] MED LIST changes: +P50 MT
[2024-01-26 04:25] VITALS: TEMP 97.9; O2SAT 100
[2024-01-26 06:25] VITALS: PULSE 80; RESP 20
[2024-01-26] MEDS: IPRATROPIUM BROMIDE (0.02%) 0.5MG/2.5ML NEB HHN STA (06:25)
[2024-01-26] MEDS: ALBUTEROL (0.083%) 2.5MG/3ML NEB HHN STA (06:25)
[2024-01-26] MEDS: PREDNISONE 20MG TABLET PO STA (06:32)
[2024-01-26] MEDS: IPRATROPIUM/ALBUTEROL 0.5-3(2.5)MG/3ML NEB HHN ONE ×2 (12:20→12:48)
[2024-01-26 12:23] VITALS: PULSE 77; RESP 20
[2024-01-26 12:46] LABS: HEMATOCRIT. 42.1 % (42.0-52.0); MEAN CORPUSCULAR HEMOGLOBIN 29.5 pg (28.0-32.0); MEAN CORPUSCULAR HGB CONC 33.2 g/dL (31.0-37.0); MEAN CORPUSCULAR VOLUME 88.9 fL (80.0-94.0); MEAN PLATELET VOLUME 9.3 fl (7.4-10.4); PLATELET 227 x1000/uL (130-400); RED BLOOD CELL COUNT 4.74 mill/uL (4.7-6.1); WHITE BLOOD COUNT 4.9 x1000/uL (4.5-11.0)
[2024-01-26 12:49] VITALS: PULSE 71; RESP 20
[2024-01-26 12:53] LABS: DIFFERENTIAL COMMENT 1
[2024-01-26 12:57] LABS: INR 0.9; PROTHROMBIN TIME 10.6 sec (9.6-11.0)
[2024-01-26 13:14] VITALS: BP 114/68; PULSE 88; RESP 16
[2024-01-26 13:28] LABS: ALANINE AMINOTRANSFERASE 38 IU/L (10-49); ALBUMIN 4.3 g/dL (3.2-4.8); ASPARTATE AMINOTRANSFERASE 22 IU/L (<34); BILIRUBIN TOTAL 0.5 mg/dL (0.1-1.0); CALCIUM 9.3 mg/dL (8.7-10.4); CARBON DIOXIDE 26 mEq/L (21-32); CHLORIDE 109 mEq/L (98-107); GLUCOSE 172 mg/dL (70-105); POTASSIUM 4.5 mEq/L (3.5-5.1); PROTEIN TOTAL 6.7 g/dL (6.0-8.3); SODIUM 141 mEq/L (136-145); TROPONIN I HIGH SENSITIVITY 7 ng/L (3.0-53); UREA NITROGEN BLOOD 20 mg/dL (9-23)
[2024-01-26 13:54] LABS: PLATELET ESTIMATE NORMAL
== END 2024-01-26 13:16 | disposition home or self-care (01) ==
LOC: ER 04:38 → EDBEDREQ 11:58 → EDBEDREQTM 11:58 → ER 13:16 → CANBEDREQ 20:49
DX: J44.1 Chronic obstructive pulmonary disease with (acute) exacerbation (principal)
CPT/HCPCS: 80053; 83880; 85025; 85610; 84484; 36415; 71045; 94640; 99285; J7512; Z7610 ×4

== ENCOUNTER 2024-02-03 06:57 | Emergency (ER) | payer MEDICAID ==
[~2024-02-03] VITALS: Ht 180.3 cm; Wt 70.0 kg
[~2024-02-03 06:57] MED LIST changes: -P50 MT
[2024-02-03] MEDS ORDERED: METHYLPREDNISOLONE SOD SUCC 125MG/2ML (ACT-O-VIAL) IV STA (07:45)
[2024-02-03 07:59] LABS: BASOPHILS % 0.2 % (0.0-2.0); EOSINOPHILS % 1.7 % (0.0-5.0); HEMATOCRIT. 39.1 % (42.0-52.0); LYMPHOCYTES % 13.5 % (20.0-50.0); MEAN CORPUSCULAR HEMOGLOBIN 29.3 pg (28.0-32.0); MEAN CORPUSCULAR HGB CONC 33.4 g/dL (31.0-37.0); MEAN CORPUSCULAR VOLUME 87.8 fL (80.0-94.0); MEAN PLATELET VOLUME 8.6 fl (7.4-10.4); MONOCYTES % 5.7 % (2.0-8.0); NEUTROPHILS % 78.9 % (40.0-76.0); PLATELET 311 x1000/uL (130-400); RED BLOOD CELL COUNT 4.45 mill/uL (4.7-6.1); RED CELL DISTRIBUTION WIDTH 13.5 % (11.6-14.6)
[2024-02-03 08:06] VITALS: PULSE 87; RESP 16
[2024-02-03] MEDS: IPRATROPIUM BROMIDE (0.02%) 0.5MG/2.5ML NEB HHN STA (08:06)
[2024-02-03] MEDS: ALBUTEROL (0.083%) 2.5MG/3ML NEB HHN STA (08:07)
[2024-02-03 08:22] LABS: ALANINE AMINOTRANSFERASE 113 IU/L (10-49); ALBUMIN 4.2 g/dL (3.2-4.8); ASPARTATE AMINOTRANSFERASE 96 IU/L (<34); BILIRUBIN TOTAL 0.3 mg/dL (0.1-1.0); CALCIUM 8.6 mg/dL (8.7-10.4); CARBON DIOXIDE 25 mEq/L (21-32); CHLORIDE 107 mEq/L (98-107); CREATININE 0.9 mg/dL (0.6-1.3); GLUCOSE 139 mg/dL (70-105); POTASSIUM 3.8 mEq/L (3.5-5.1); PROTEIN TOTAL 6.3 g/dL (6.0-8.3); SODIUM 138 mEq/L (136-145); TROPONIN I HIGH SENSITIVITY 7 ng/L (3.0-53); UREA NITROGEN BLOOD 18 mg/dL (9-23)
[2024-02-03] MEDS ORDERED: ACETAMINOPHEN 650MG/20.3ML UDC GT PRN (09:30)
[2024-02-03] MEDS ORDERED: ONDANSETRON HCL 4MG/2ML INJ IV PRN (09:30)
[2024-02-03] MEDS ORDERED: ACETAMINOPHEN 325MG TABLET PO PRN (09:30)
[2024-02-03] MEDS ORDERED: GUAIFENESIN 200MG/10ML SUGAR FREE UDC PO PRN (09:30)
[2024-02-03] MEDS ORDERED: MAGNESIUM/ALUMINUM HYDROXIDE/SIMETHICONE 30ML UDC PO PRN (09:30)
[2024-02-03] MEDS ORDERED: IPRATROPIUM/ALBUTEROL 0.5-3(2.5)MG/3ML NEB HHN PRN (09:30)
[2024-02-03] MEDS ORDERED: CLONIDINE 0.1MG TABLET PO PRN (09:30)
[2024-02-03] MEDS: METHYLPREDNISOLONE SOD SUCC 125MG/2ML (ACT-O-VIAL) IV NR (09:46)
[2024-02-03 09:52] VITALS: PULSE 57; RESP 16
[2024-02-03 10:37] LABS: ALBUMIN 3.9 g/dL (3.2-4.8); CHOLESTEROL 157 mg/dL (<200); HDL CHOLESTEROL 52 mg/dL (>55); IRON 63 ug/dL (65-175); LDL CHOLESTEROL 87 mg/dL (5-100); TOTAL IRON BINDING CAPACITY 331 ug/dl (250-425); TRIGLYCERIDE 71 mg/dL (0-150)
[2024-02-03 11:44] LABS: BG BASE EXCESS 2.4 mmol/L (-2.0-2.0); BG CARBOXYHEMOGLOBIN 0.5 % (0.5-1.5); BG DEOXYHEMOGLOBIN 7.6 % (0.0-5.0); BG FRACTION INSPIRED OXYGEN 21; BG HCO3 ACT 27.3 mmol/L (22.0-26.0); BG METHEMOGLOBIN 0.3 % (0.0-1.5); BG OXYGEN SATURATION 92.3 % (92.0-98.5); BG OXYHEMOGLOBIN 91.6 % (94.0-97.0); BG PCO2 43.4 mmHg (35.0-45.0); BG PH 7.417 (7.350-7.450); BG PO2 62.1 mmHg (75.0-100.0); BG SAMPLE SITE RIGHT RADIAL; BG TOTAL HEMOGLOBIN 14.1 g/dL (12.0-18.0); BG VENT MODE ROOM AIR
[2024-02-03] MEDS: ASPIRIN 81MG EC TABLET PO SCH (11:46)
[2024-02-03] MEDS: FOLIC ACID 1MG TABLET PO SCH (11:47)
[2024-02-03] MEDS: ATORVASTATIN CALCIUM 20MG TABLET PO SCH (11:47)
[2024-02-03] MEDS: CEFTRIAXONE 1GM/50ML 50 ML IV SCH (12:00)
[2024-02-03] MEDS: AZITHROMYCIN 500MG/250ML 250 ML IV SCH (12:15)
[2024-02-03] MEDS: IPRATROPIUM/ALBUTEROL 0.5-3(2.5)MG/3ML NEB HHN SCH (12:40)
[2024-02-03 12:42] VITALS: PULSE 77; RESP 16; O2SAT 96
[2024-02-03 12:50] LABS: FERRITIN 31 ng/mL (22-322); FOLIC ACID (FOLATE) SERUM > 20.00 ng/mL (>5.38); VITAMIN B12 SERUM 419 pg/mL (211-911)
[2024-02-03 14:00] VITALS: BP 136/72; PULSE 84; RESP 18; TEMP 98.1
[2024-02-03] MEDS ORDERED: METHYLPREDNISOLONE SOD SUCC 40MG/ML (ACT-O-VIAL) IV SCH (18:00)
== END 2024-02-03 15:57 | disposition admitted as inpatient to this hospital (09) ==
LOC: ER 06:57 → EDBEDREQ 09:31 → EDBEDREQTM 09:31 → ER 15:57 → CANBEDREQ 02-04 10:35
DX: J44.1 Chronic obstructive pulmonary disease with (acute) exacerbation (principal); J45.901 Unspecified asthma with (acute) exacerbation; I10 Essential (primary) hypertension; Z79.82 Long term (current) use of aspirin; Z79.899 Other long term (current) drug therapy
CPT/HCPCS: 80061; 80053; 82040; 82607; 82728; 82746; 83036; 83880; 83540; 83550; 85025; 85379; 84484; 36415; 71045; 82805; 82375; 93005; 94644; 96368; 96365; 99285; 36600; J0456; J0696; J2930; Z7610 ×4; 96375

== ENCOUNTER 2024-02-21 14:17 | Emergency (ER) | payer MEDICAID ==
[~2024-02-21] VITALS: Ht 175.3 cm; Wt 80.0 kg
[2024-02-21 14:21] VITALS: O2SAT 100
[2024-02-21] MEDS ORDERED: IPRATROPIUM/ALBUTEROL 0.5-3(2.5)MG/3ML NEB HHN ONE (14:45)
[2024-02-21] MEDS: METHYLPREDNISOLONE SOD SUCC 125MG/2ML (ACT-O-VIAL) IV ONE (14:53)
[2024-02-21 15:04] LABS: BASOPHILS % 0.5 % (0.0-2.0); EOSINOPHILS % 4.3 % (0.0-5.0); HEMATOCRIT. 42.4 % (42.0-52.0); HEMOGLOBIN. 13.9 g/dL (14.0-18.0); LYMPHOCYTES % 21.7 % (20.0-50.0); MEAN CORPUSCULAR HEMOGLOBIN 29.4 pg (28.0-32.0); MEAN CORPUSCULAR HGB CONC 32.8 g/dL (31.0-37.0); MEAN CORPUSCULAR VOLUME 89.4 fL (80.0-94.0); MEAN PLATELET VOLUME 8.8 fl (7.4-10.4); NEUTROPHILS % 65.5 % (40.0-76.0); PLATELET 232 x1000/uL (130-400); RED BLOOD CELL COUNT 4.75 mill/uL (4.7-6.1); WHITE BLOOD COUNT 8.5 x1000/uL (4.5-11.0)
[2024-02-21 15:09] LABS: CHLORIDE 108 mEq/L (98-107); SODIUM 141 mEq/L (136-145)
[2024-02-21 15:10] LABS: CALCIUM 9.4 mg/dL (8.7-10.4); CARBON DIOXIDE 28 mEq/L (21-32)
[2024-02-21 15:15] LABS: CREATININE 1.1 mg/dL (0.6-1.3); GLUCOSE 165 mg/dL (70-105); UREA NITROGEN BLOOD 21 mg/dL (9-23)
[2024-02-21] MEDS ORDERED: P50 MT (17:23)
[2024-02-21 17:59] VITALS: BP 109/69; PULSE 81; RESP 15; TEMP 97.9
== END 2024-02-21 18:13 | disposition home or self-care (01) ==
LOC: ER 14:17
DX: J44.9 Chronic obstructive pulmonary disease, unspecified (principal); I10 Essential (primary) hypertension
CPT/HCPCS: 80048; 85025; 36415; 84145; 71045; 96374; 99284; J2930; Z7610 ×3

== ENCOUNTER 2024-03-01 03:16 | Inpatient (IN) | payer MEDICAID ==
[~2024-03-01] VITALS: Ht 170.2 cm; Wt 67.1 kg
[2024-03-01] VITALS (7 sets, daily range): BP systolic 122–145; BP diastolic 56–85; PULSE 75–90; RESP 18–26; TEMP 97.1–98.2; O2SAT 97–99
[~2024-03-01 03:16] MED LIST changes: +P50 MT
[2024-03-01] MEDS: MAGNESIUM 2 G PREMIX 50 ML IV ONE (04:05)
[2024-03-01] MEDS: METHYLPREDNISOLONE SOD SUCC 125MG/2ML (ACT-O-VIAL) IV STA (04:05)
[2024-03-01] MEDS: ALBUTEROL (0.083%) 2.5MG/3ML NEB HHN STA (04:27)
[2024-03-01] MEDS: IPRATROPIUM BROMIDE (0.02%) 0.5MG/2.5ML NEB HHN STA (04:28)
[2024-03-01 05:03] LABS: BASOPHILS % 0.9 % (0.0-2.0); HEMATOCRIT. 38.3 % (42.0-52.0); HEMOGLOBIN. 12.4 g/dL (14.0-18.0); LYMPHOCYTES % 24.8 % (20.0-50.0); MEAN CORPUSCULAR HEMOGLOBIN 29.1 pg (28.0-32.0); MEAN CORPUSCULAR HGB CONC 32.4 g/dL (31.0-37.0); MEAN CORPUSCULAR VOLUME 89.9 fL (80.0-94.0); MEAN PLATELET VOLUME 9.4 fl (7.4-10.4); MONOCYTES % 10.7 % (2.0-8.0); NEUTROPHILS % 61.6 % (40.0-76.0); PLATELET 256 x1000/uL (130-400); RED BLOOD CELL COUNT 4.26 mill/uL (4.7-6.1); RED CELL DISTRIBUTION WIDTH 13.9 % (11.6-14.6); WHITE BLOOD COUNT 6.3 x1000/uL (4.5-11.0)
[2024-03-01 05:46] LABS: CHLORIDE 109 mEq/L (98-107); POTASSIUM 3.5 mEq/L (3.5-5.1); SODIUM 143 mEq/L (136-145)
[2024-03-01 05:47] LABS: CARBON DIOXIDE 29 mEq/L (21-32)
[2024-03-01 05:52] LABS: CREATININE 0.6 mg/dL (0.6-1.3); GLUCOSE 116 mg/dL (70-105); TROPONIN I HIGH SENSITIVITY 6 ng/L (3.0-53); UREA NITROGEN BLOOD 18 mg/dL (9-23)
[2024-03-01 09:02] LABS: CALCIUM 9.3 mg/dL (8.7-10.4)
[2024-03-01] MEDS ORDERED: CLONIDINE 0.1MG TABLET PO PRN (09:30)
[2024-03-01] MEDS ORDERED: ONDANSETRON HCL 4MG/2ML INJ IV PRN (09:30)
[2024-03-01] MEDS ORDERED: ACETAMINOPHEN 325MG TABLET PO PRN ×2 (09:30)
[2024-03-01] MEDS: PANTOPRAZOLE 40MG DR TABLET PO SCH (09:33)
[2024-03-01] MEDS: IPRATROPIUM/ALBUTEROL 0.5-3(2.5)MG/3ML NEB HHN SCH ×2 (09:45→20:38)
[2024-03-01] MEDS: METHYLPREDNISOLONE SOD SUCC 40MG/ML (ACT-O-VIAL) IV SCH (09:52)
[2024-03-01] MEDS: ENOXAPARIN 40MG/0.4ML SYR SUBCUT SCH (09:53)
[2024-03-01 11:02] LABS: BG BASE EXCESS 0.7 mmol/L (-2.0-2.0); BG CARBOXYHEMOGLOBIN 0.8 % (0.5-1.5); BG DEOXYHEMOGLOBIN 2.5 % (0.0-5.0); BG FRACTION INSPIRED OXYGEN 32; BG HCO3 ACT 26.1 mmol/L (22.0-26.0); BG METHEMOGLOBIN 0.4 % (0.0-1.5); BG OXYGEN SATURATION 97.5 % (92.0-98.5); BG OXYHEMOGLOBIN 96.3 % (94.0-97.0); BG PH 7.382 (7.350-7.450); BG PO2 99.8 mmHg (75.0-100.0); BG SAMPLE SITE RIGHT RADIAL; BG TOTAL HEMOGLOBIN 13.4 g/dL (12.0-18.0); BG VENT MODE NASAL CANNULA
[2024-03-01] MEDS: SODIUM CHLORIDE 0.45% 1,000 ML IV SCH (11:06)
[2024-03-01] MEDS: CEFTRIAXONE 1GM/50ML 50 ML IV SCH (11:06)
[2024-03-01 11:22] LABS: TRIGLYCERIDE 99 mg/dL (0-150)
[2024-03-01 11:23] LABS: LDL CHOLESTEROL 150 mg/dL (5-100)
[2024-03-01 11:24] LABS: CHOLESTEROL 205 mg/dL (<200); HDL CHOLESTEROL 63 mg/dL (>55); PHOSPHORUS 5.6 mg/dL (2.5-4.9)
[2024-03-01 11:28] LABS: T4 FREE 1.47 ng/dL (0.89-1.76)
[2024-03-01 11:29] LABS: THYROID STIMULATING HORMONE 0.57 uIU/mL (0.55-4.78)
[2024-03-01 11:56] LABS: VITAMIN B12 SERUM 429 pg/mL (211-911)
[2024-03-01] MEDS: AZITHROMYCIN 500MG/250ML 250 ML IV SCH (12:00)
[2024-03-01 12:11] LABS: FOLIC ACID (FOLATE) SERUM > 20.00 ng/mL (>5.38)
[2024-03-01] MEDS: ASPIRIN 81MG TABLET PO SCH (16:38)
[2024-03-01] MEDS ORDERED: IPRATROPIUM/ALBUTEROL 0.5-3(2.5)MG/3ML NEB HHN PRN (18:00)
[2024-03-01 18:21] LABS: IRON 131 ug/dL (65-175)
[2024-03-01 18:24] LABS: TOTAL IRON BINDING CAPACITY 333 ug/dl (250-425)
[2024-03-01] MEDS: BUDESONIDE 0.5MG/2ML NEB HHN SCH (20:38)
[2024-03-01] MEDS: ATORVASTATIN CALCIUM 40MG TABLET PO SCH (21:30)
[2024-03-02] VITALS (11 sets, daily range): BP systolic 100–137; BP diastolic 51–90; PULSE 72–90; RESP 18–24; TEMP 97.2–98.2
[2024-03-02] MEDS: IPRATROPIUM/ALBUTEROL 0.5-3(2.5)MG/3ML NEB HHN PRN (12:17)
[2024-03-02 16:36] LABS: HEMATOCRIT 38.6 % (42.0-52.0); HEMOGLOBIN 12.9 g/dL (14.0-18.0); MEAN CORPUSCULAR HEMOGLOBIN 29.7 pg (28.0-32.0); MEAN CORPUSCULAR HGB CONC 33.5 g/dL (31.0-37.0); MEAN CORPUSCULAR VOLUME 88.5 fL (80.0-94.0); PLATELET 252 x1000/uL (130-400); RED BLOOD CELL COUNT 4.36 mill/uL (4.7-6.1); RED CELL DISTRIBUTION WIDTH 13.9 % (11.6-14.6); WHITE BLOOD COUNT 5.4 x1000/uL (4.5-11.0)
[2024-03-02 16:41] LABS: CHLORIDE 104 mEq/L (98-107); POTASSIUM 4.1 mEq/L (3.5-5.1); SODIUM 140 mEq/L (136-145)
[2024-03-02 16:42] LABS: CARBON DIOXIDE 30 mEq/L (21-32)
[2024-03-02 16:43] LABS: CALCIUM 9.3 mg/dL (8.7-10.4)
[2024-03-02 16:47] LABS: CREATININE 0.8 mg/dL (0.6-1.3); GLUCOSE 97 mg/dL (70-105); UREA NITROGEN BLOOD 10 mg/dL (9-23)
[2024-03-02] MEDS: METHYLPREDNISOLONE SOD SUCC 40MG/ML (ACT-O-VIAL) IV SCH (18:30)
[2024-03-03] VITALS (7 sets, daily range): BP systolic 101–129; BP diastolic 69–81; PULSE 76–92; RESP 18–21; TEMP 97.8–99.1; O2SAT 94–98
[2024-03-03 07:35] LABS: CHLORIDE 104 mEq/L (98-107); SODIUM 139 mEq/L (136-145)
[2024-03-03 07:36] LABS: CALCIUM 9.7 mg/dL (8.7-10.4); CARBON DIOXIDE 27 mEq/L (21-32)
[2024-03-03 07:41] LABS: CREATININE 0.9 mg/dL (0.6-1.3); GLUCOSE 126 mg/dL (70-105); UREA NITROGEN BLOOD 11 mg/dL (9-23)
[2024-03-11 09:09] LABS: AMPHETAMINE SCREEN Negative ng/mL (Cutoff:50); BARBITURATE SCREEN Negative ug/mL (Cutoff:0.1); BENZODIAZEPINE SCREEN Negative ng/mL (Cutoff:20); OPIATES SCREEN Negative ng/mL (Cutoff:5); OXYCODONE SCREEN Negative ng/mL (Cutoff:5); PHENCYCLIDINE SCREEN Negative ng/mL (Cutoff:8)
== END 2024-03-03 15:33 | disposition home or self-care (01) | DRG 140 ==
LOC: ER 03:42 → 5WST 07:31 → 8WST 18:47
PROVIDERS: ADMIT Internal Medicine; ATTEND Internal Medicine
DX: J44.1 Chronic obstructive pulmonary disease with (acute) exacerbation (principal); J96.01 Acute respiratory failure with hypoxia; I26.99 Other pulmonary embolism without acute cor pulmonale; I50.31 Acute diastolic (congestive) heart failure; J45.901 Unspecified asthma with (acute) exacerbation; E83.39 Other disorders of phosphorus metabolism; E83.41 Hypermagnesemia; I11.0 Hypertensive heart disease with heart failure; E78.5 Hyperlipidemia, unspecified; Z79.899 Other long term (current) drug therapy; F17.210 Nicotine dependence, cigarettes, uncomplicated; R73.03 Prediabetes; Z79.82 Long term (current) use of aspirin; Z79.51 Long term (current) use of inhaled steroids; Z20.822 Contact with and (suspected) exposure to COVID-19
CPT/HCPCS: 36415; 36600; 71045; 80048; 80061; 80307; 82375; 82607; 82728; 82746; 82805; 83036; 83540; 83550; 83605; 83735; 83880; 84100; 84439; 84443; 84484; 85025; 85027; 85379; 87426; 87804; 93005; 93306; 93970; 94640; 99285; J0456; J0696; J1650; J2920; J2930; J3475; J7626

== ENCOUNTER 2024-03-11 02:47 | Emergency (ER) | payer MEDICAID ==
[~2024-03-11] VITALS: Ht 180.3 cm; Wt 65.0 kg
[2024-03-11 02:48] VITALS: TEMP 98.3
[2024-03-11 03:29] VITALS: PULSE 102; RESP 22; O2SAT 99
[2024-03-11] MEDS: IPRATROPIUM BROMIDE (0.02%) 0.5MG/2.5ML NEB HHN STA (03:29)
[2024-03-11] MEDS: ALBUTEROL (0.083%) 2.5MG/3ML NEB HHN SCH (03:29)
[2024-03-11 03:31] LABS: BASOPHILS % 1.2 % (0.0-2.0); EOSINOPHILS % 3.3 % (0.0-5.0); HEMOGLOBIN. 15.5 g/dL (14.0-18.0); LYMPHOCYTES % 30.8 % (20.0-50.0); MEAN CORPUSCULAR HEMOGLOBIN 29.1 pg (28.0-32.0); MEAN CORPUSCULAR VOLUME 88.1 fL (80.0-94.0); MEAN PLATELET VOLUME 9.4 fl (7.4-10.4); MONOCYTES % 8.5 % (2.0-8.0); NEUTROPHILS % 56.2 % (40.0-76.0); PLATELET 334 x1000/uL (130-400); RED BLOOD CELL COUNT 5.34 mill/uL (4.7-6.1); WHITE BLOOD COUNT 7.2 x1000/uL (4.5-11.0)
[2024-03-11 03:36] LABS: CHLORIDE 106 mEq/L (98-107); SODIUM 141 mEq/L (136-145)
[2024-03-11 03:37] LABS: CARBON DIOXIDE 32 mEq/L (21-32)
[2024-03-11 03:38] LABS: CALCIUM 9.5 mg/dL (8.7-10.4)
[2024-03-11 03:42] LABS: CREATININE 1.1 mg/dL (0.6-1.3)
[2024-03-11 03:43] LABS: GLUCOSE 109 mg/dL (70-105); UREA NITROGEN BLOOD 13 mg/dL (9-23)
[2024-03-11 03:45] LABS: TROPONIN I HIGH SENSITIVITY < 4 ng/L (3.0-53)
[2024-03-11] MEDS: METHYLPREDNISOLONE SOD SUCC 125MG/2ML (ACT-O-VIAL) IV STA (04:04)
[2024-03-11] MEDS: MAGNESIUM 2 G PREMIX 50 ML IV ONE (04:04)
[2024-03-11] MEDS ORDERED: P20 MT (05:33)
[2024-03-11 06:04] VITALS: BP 127/80; PULSE 89; RESP 20
== END 2024-03-11 06:06 | disposition home or self-care (01) ==
LOC: ER 02:47
DX: J44.1 Chronic obstructive pulmonary disease with (acute) exacerbation (principal); J96.91 Respiratory failure, unspecified with hypoxia; F17.200 Nicotine dependence, unspecified, uncomplicated; I10 Essential (primary) hypertension; Z79.899 Other long term (current) drug therapy
CPT/HCPCS: 80048; 83880; 83605; 85025; 85379; 84484; 36415; 71045; 94644; 96365; 96366; 96375; 99285; J3475; J2930; Z7610 ×2

== ENCOUNTER 2024-03-14 11:58 | Emergency (ER) | payer MEDICAID ==
[~2024-03-14] VITALS: Ht 177.8 cm; Wt 64.0 kg
[2024-03-14] MEDS: IPRATROPIUM BROMIDE (0.02%) 0.5MG/2.5ML NEB HHN STA (12:36)
[2024-03-14 12:37] VITALS: PULSE 82; RESP 18; O2SAT 98
[2024-03-14] MEDS: ALBUTEROL (0.083%) 2.5MG/3ML NEB HHN STA (12:37)
[2024-03-14] MEDS: MAGNESIUM 2 G PREMIX 50 ML IV STA (12:50)
[2024-03-14] MEDS: METHYLPREDNISOLONE SOD SUCC 125MG/2ML (ACT-O-VIAL) IV STA (12:55)
[2024-03-14 12:57] LABS: BASOPHILS % 1.2 % (0.0-2.0); DIFFERENTIAL COMMENT 0; EOSINOPHILS % 4.5 % (0.0-5.0); HEMOGLOBIN. 13.6 g/dL (14.0-18.0); LYMPHOCYTES % 17.2 % (20.0-50.0); MEAN CORPUSCULAR HGB CONC 34.1 g/dL (31.0-37.0); MEAN CORPUSCULAR VOLUME 88.1 fL (80.0-94.0); MONOCYTES % 6.3 % (2.0-8.0); NEUTROPHILS % 70.8 % (40.0-76.0); PLATELET 273 x1000/uL (130-400); RED BLOOD CELL COUNT 4.53 mill/uL (4.7-6.1); RED CELL DISTRIBUTION WIDTH 13.8 % (11.6-14.6); WHITE BLOOD COUNT 4.3 x1000/uL (4.5-11.0)
[2024-03-14 13:00] LABS: CHLORIDE 104 mEq/L (98-107); POTASSIUM 3.7 mEq/L (3.5-5.1); SODIUM 138 mEq/L (136-145)
[2024-03-14 13:01] LABS: CALCIUM 9.1 mg/dL (8.7-10.4); CARBON DIOXIDE 29 mEq/L (21-32)
[2024-03-14 13:06] LABS: CREATININE 0.8 mg/dL (0.6-1.3); GLUCOSE 143 mg/dL (70-105); UREA NITROGEN BLOOD 7 mg/dL (9-23)
[2024-03-14 13:15] LABS: TROPONIN I HIGH SENSITIVITY < 4 ng/L (3.0-53)
[2024-03-14] MEDS ORDERED: P50 PO (13:30)
[2024-03-14] MEDS ORDERED: ALBU6.7H15 INH (13:30)
[2024-03-14 14:05] VITALS: BP 124/69; PULSE 75; RESP 17; TEMP 97.9
== END 2024-03-14 14:06 | disposition short-term general hospital (02) ==
LOC: ER 11:58 → CANBEDREQ 14:06 → ER 14:06
DX: J44.1 Chronic obstructive pulmonary disease with (acute) exacerbation (principal); I10 Essential (primary) hypertension; F19.90 Other psychoactive substance use, unspecified, uncomplicated
CPT/HCPCS: 80048; 83880; 85025; 84484; 36415; 71045; 94640; 93005; 96365; 96375; 99285; J3475; J2930; Z7610 ×5